=== PATIENT | female | born 1940 | race Caucasian/White ===

== ENCOUNTER → 2023-09-01 14:30 | Outpatient (REF) | payer MEDICARE, OTHER, SELFPAY | LOC: RAD 14:30 | PROVIDERS: ATTENDING PHYSICIAN Physician Assistant | DX: R91.1 Solitary pulmonary nodule (principal) | CPT/HCPCS: 71250 ==

== ENCOUNTER → 2023-09-02 09:43 | Outpatient (REF) | payer MEDICARE, OTHER, SELFPAY ==
[2023-09-02 10:31] LABS: % Basophils 0.8 % (0-2); % Immature Granulocytes 0.4 % (0-0.5); % Lymphocytes 25.2 % (20.5-51.1); % Monocytes 6.3 % (1.7-9.3); % Neutrophils 63.3 % (42.2-75.2); Absolute Eosinophils 0.2 10^3/uL (0-0.7); Absolute Lymphocytes 1.3 10^3/uL (1.2-3.4); Absolute Monocytes 0.3 10^3/uL (0.1-0.6); Absolute Neutrophils 3.1 10^3/uL (1.4-6.5); Hematocrit 35.1 % (37.0-47.0); Hemoglobin 13.1 g/dL (12.0-16.0); Mean Corp Hgb Conc. 37.3 g/dL (33.0-37.0); Mean Corpuscular Hgb 34.7 pg (27.0-31.0); Mean Corpuscular Volume 93.1 fL (81.0-99.0); Mean Platelet Volume 9.3 fL (7.4-10.4); Nucleated Red Blood Cells % 0 %; Platelet Count 234 10^3/uL (130-400); Red Blood Cell Count 3.77 10^6/uL (4.20-5.40); Red Cell Dist. Width 14.6 % (11.5-14.5)
[2023-09-02 11:07] LABS: ALT (SGPT) 15 U/L (0-35); AST (SGOT) 25 U/L (14-36); Albumin 4.2 g/dl (3.5-5.0); Alkaline Phosphatase 79 U/L (38-126); Blood Urea Nitrogen 24 mg/dl (7-17); Calcium 9.5 mg/dl (8.4-10.2); Carbon Dioxide 28 mmol/L (22-30); Chloride 100 mmol/L (98-107); Glucose 91 mg/dl (70-99); HDL Cholesterol 66 mg/dl; LDL Cholesterol, Calculated 62 mg/dl; Potassium 4.2 mmol/L (3.5-5.1); Sodium 135 mmol/L (135-145); Total Bilirubin 1.8 mg/dl (0.2-1.3); Total Cholesterol 156 mg/dl (50-199); Total Protein 7.3 g/dl (6.3-8.2); Triglyceride 141 mg/dl (10-149); Very Low Density Lipoprotein 28 mg/dl (0-30); eGFR > 60.00
== END ==
LOC: RAD 09:43
PROVIDERS: ATTENDING PHYSICIAN Physician Assistant
DX: Z95.2 Presence of prosthetic heart valve (principal); I10 Essential (primary) hypertension; M17.11 Unilateral primary osteoarthritis, right knee
CPT/HCPCS: 36415; 73564; 80053; 80061; 85025

== ENCOUNTER → 2023-10-07 09:57 | Outpatient (REF) | payer MEDICARE, OTHER, SELFPAY | LOC: RAD 09:57 | PROVIDERS: ATTENDING PHYSICIAN Physician Assistant | DX: M81.0 Age-related osteoporosis without current pathological fracture (principal) | CPT/HCPCS: 77080 ==

== ENCOUNTER → 2023-12-29 13:58 | Outpatient (REF) | payer MEDICARE, OTHER, SELFPAY | LOC: RAD 13:58 | PROVIDERS: ATTENDING PHYSICIAN Physician Assistant | DX: M79.89 Other specified soft tissue disorders (principal); R60.0 Localized edema | CPT/HCPCS: 93971 ==

== ENCOUNTER → 2024-02-11 10:55 | Outpatient (REF) | payer MEDICARE, OTHER, SELFPAY | LOC: RCS 10:55 | PROVIDERS: ATTENDING PHYSICIAN Nurse Practitioner; FAMILY PHYSICIAN Physician Assistant | DX: I34.0 Nonrheumatic mitral (valve) insufficiency (principal); I42.1 Obstructive hypertrophic cardiomyopathy | CPT/HCPCS: 93306 ==

== ENCOUNTER → 2024-03-02 09:51 | Outpatient (REF) | payer MEDICARE, OTHER, SELFPAY ==
[2024-03-02 11:17] LABS: ALT (SGPT) 13 U/L (0-35); AST (SGOT) 24 U/L (14-36); Albumin 4.4 g/dl (3.5-5.0); Alkaline Phosphatase 79 U/L (38-126); Blood Urea Nitrogen 15 mg/dl (7-17); Calcium 9.3 mg/dl (8.4-10.2); Carbon Dioxide 27 mmol/L (22-30); Chloride 100 mmol/L (98-107); Glucose 97 mg/dl (70-99); HDL Cholesterol 68 mg/dl; LDL Cholesterol, Calculated 90 mg/dl; Magnesium 2.1 mg/dl (1.6-2.3); Potassium 4.5 mmol/L (3.5-5.1); Sodium 138 mmol/L (135-145); Total Bilirubin 2.1 mg/dl (0.2-1.3); Total Cholesterol 181 mg/dl (50-199); Triglyceride 117 mg/dl (10-149); Very Low Density Lipoprotein 23 mg/dl (0-30); eGFR > 60.00
[2024-03-02 11:20] LABS: % Basophils 0.8 % (0-2); % Eosinophils 2.8 % (0-6); % Immature Granulocytes 0.2 % (0-0.5); % Lymphocytes 25.8 % (20.5-51.1); % Monocytes 6.3 % (1.7-9.3); % Neutrophils 64.1 % (42.2-75.2); Absolute Eosinophils 0.1 10^3/uL (0-0.7); Absolute Lymphocytes 1.3 10^3/uL (1.2-3.4); Absolute Monocytes 0.3 10^3/uL (0.1-0.6); Absolute Neutrophils 3.2 10^3/uL (1.4-6.5); Hematocrit 33.1 % (37.0-47.0); Hemoglobin 12.5 g/dL (12.0-16.0); Mean Corp Hgb Conc. 37.8 g/dL (33.0-37.0); Mean Corpuscular Hgb 35.8 pg (27.0-31.0); Mean Corpuscular Volume 94.8 fL (81.0-99.0); Mean Platelet Volume 9.1 fL (7.4-10.4); Nucleated Red Blood Cells % 0 %; Platelet Count 243 10^3/uL (130-400); Red Blood Cell Count 3.49 10^6/uL (4.20-5.40); Red Cell Dist. Width 14.6 % (11.5-14.5); White Blood Cell Count 4.9 10^3/uL (4.8-10.8)
[2024-03-02 11:29] LABS: Vitamin D, 25-OH*** 30.9 ng/mL (30-80)
== END ==
LOC: REG 09:51
PROVIDERS: ATTENDING PHYSICIAN Physician Assistant
DX: I10 Essential (primary) hypertension (principal); M81.0 Age-related osteoporosis without current pathological fracture; R53.82 Chronic fatigue, unspecified
CPT/HCPCS: 36415; 80053; 80061; 82306; 83735; 84443; 85025

== ENCOUNTER 2024-05-24 08:23 | Inpatient (IN) | payer MEDICARE, OTHER, SELFPAY ==
[2024-05-21 20:48] VITALS: BP 172/89
--- NOTE | 2024-05-21 21:27 | ED.SKININJ ---
HPI-Injury
General
Chief Complaint: Skin Problem
Source: patient
Exam Limitations: none
Time Seen by Provider: 05/21/24 21:26
Nursing documentation reviewed up to this point in time: agreed with
History of Present Illness-Injury
Initial Injury comments:
84-year-old female with history of A-fib on aspirin only, cardiomyopathy, HTN, GI bleed, irritable bowel, anemia, anxiety/depression, atrial valve replacement, presents with swelling, redness, wound RLE.
Fell up concrete steps of [place] 05/02, contusion left paz, deep abrasion mid right paz.
Past 3 days RLE has become more red, swollen so went to UC today and started on Keflex 500 mg TID, she's had one dose.
She and daughter at bedside thought the area looked pretty bad and came here for evaluation
Pt denies pain, states 'discomfort.' Denies f/c.
Past History
Past History
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
ED Past Surgical History: Cardiac (atrial valve replaced x 2, last 2022), Cholecystectomy and Tonsilectomy
Social History
Tobacco: Non-smoker
Alcohol: None
Drug: None
Personal: (Noncontributory)
Living: with family
Family History
Family History: Other (Stroke, [place]); Negative Sudden
Review of Systems
Review of Systems
Allergies reviewed?: Yes
All Other Systems: ROS reviewed and negative except as documented in HPI and ROS
Constitutional: Denies fever or chills
Respiratory: Denies trouble breathing
Cardiac: Denies chest pain
ABD/GI: Denies abdominal pain or nausea
: Denies dysuria or difficulty voiding
Musculoskeletal: Reports other (swelling, redness right lower leg)
Skin: Reports other (wound right paz)
Neurological: Reports no symptoms
Phy Exam
Physical Exam
Physical Exam:
GENERAL: No acute distress. A&Ox3.
CONSTITUTIONAL: Afebrile.
EYES: clear, conjunctivae normal
ENMT: moist mucus membranes, Pharynx nl
RESPIRATORY: Regular respirations, nonlabored, lungs clear.
CARDIOVASCULAR: Regular rate and rhythm, no murmurs, no rubs.
GI: Soft, nontender, normal BS
MUSCULOSKELETAL: Moves with ease. Well perfused.
SKIN: Warm, dry, pink. RLE significantly erythematous, swollen. Quarter sized deep open wound mid paz. Dark red granulation tissue, no purulence
PSYCH: Normal mood and affect. Well kept, interactive and appropriate
NEUROLOGIC: Awake, alert and oriented. No focal neurological deficits
Course
Orders/Labs/Results
Orders:
Orders
05/21/24 22:02
Complete Blood Count/With Diff Urgent
Comprehensive Metabolic Panel Urgent
05/21/24 22:15
Wound Culture [Wound/Abscess/Other Culture] Urgent
MARCELLUS Source: Leg
Specimen Description: Right
Date Specimen was Collected: 05/21/24
Time Specimen was Collected: 22:05
05/21/24 22:19
CeFAZolin 1 GRAM [Ancef] 1 gram in 5 ml IV NOW
05/21/24 23:01
Admit/Transfer Patient As Directed
Co-Sign Provider:
Level of Care: Observation services
Assign to:: Medical/Surgical
Physician / Group: Paddy
Diagnosis: RLE Cellulitis
PRN Pain Medication Management As Directed
May give lesser potent ordered pain med per pt: Yes
preference::
Protocol:: Medication orders for pain may be administered in a
manner that supports deferring to patient preference
when the pt is:
- Requesting an ordered lesser potent pain medication.
Least to most potent pain medications are defined
as: acetaminophen < NSAID < tramadol < opioids
(morphine, oxycodone, hydromorphone).
- Requesting a lesser dose of the same medication IF
ORDERED.
- Requesting a less intrusive route of administration
if both routes are prescribed by the provider (PO <
IV).
05/21/24 23:02
Code Status As Directed
Resuscitation Status: Full Code
Abnormal Lab Results
05/21/24
22:02
RBC 3.19 L 10^6/uL
(4.20-5.40)
Hgb 11.4 L g/dL
(12.0-16.0)
Hct 30.6 L %
(37.0-47.0)
MCH 35.7 H pg
(27.0-31.0)
MCHC 37.3 H g/dL
(33.0-37.0)
RDW 15.5 H %
(11.5-14.5)
Abs Immat Gran (auto) 0.1 H 10^3/uL
(0-0.05)
Absolute Neuts (auto) 6.8 H 10^3/uL
(1.4-6.5)
Absolute Monos (auto) 0.7 H 10^3/uL
(0.1-0.6)
Immature Gran % 0.8 H %
(0-0.5)
Lymphocytes % 14.7 L %
(20.5-51.1)
Sodium 132 L mmol/L
(135-145)
Chloride 96 L mmol/L
(98-107)
Glucose 109 H mg/dl
(70-99)
Total Bilirubin 1.8 H mg/dl
(0.2-1.3)
05/21/24 22:02
05/21/24 22:02
Vital Signs
Initial and Last Documented VS:
Initial Vital Signs
Temp Pulse Resp BP Pulse Ox
98.3 F 87 20 172/89 95
05/21/24 20:48 05/21/24 20:48 05/21/24 20:48 05/21/24 20:48 05/21/24 20:48
Last Documented Vital Signs
Temp Pulse Resp BP Pulse Ox
98.3 F 78 18 142/65 99
05/21/24 20:48 05/21/24 22:21 05/21/24 22:21 05/21/24 22:21 05/21/24 22:21
MDM/Problems Addressed
MDM/Problems Addressed:
84-year-old female with history of A-fib on aspirin only, cardiomyopathy, HTN, GI bleed, irritable bowel, anemia, anxiety/depression, atrial valve replacement, presents with swelling, redness, wound RLE.
Fell up concrete steps of [place] 05/02, contusion left paz, deep abrasion mid right paz.
Past 3 days RLE has become more red, swollen so went to UC today and started on Keflex 500 mg TID, she's had one dose.
She and daughter at bedside thought the area looked pretty bad and came here for evaluation
Pt denies pain, states 'discomfort.' Denies f/c.
Afebrile, NAD
10:30 p.m.
CBC unremarkable.
CMP: No clinically significant abnormality
Wound culture pending
Hospitalist notified of admission.
*Critical Care Note
Total Time (30-74mins, 75-104mins- exclusive of procedures): Not Applicable
ED Attending Note
-
Portions of this chart may have been created with voice recognition software.� Occasional wrong word or��sound alike� substitutions may have occurred due to the inherent limitations of voice recognition software.
Discharge Plan
Departure
Patient Disposition: Admit
Date of Disposition: 05/21/24
Time of Disposition: 21:50
Admit to: Med/Surg
Presentation/result/management discussed w/ accepting MD/DO: Hospitalist
Condition: Fair
Discharge Problem:
Cellulitis of right lower leg, Open wound of right lower leg
Prescriptions:
No Action
quetiapine [Seroquel] 300 MG tablet
300 mg PO HS
aspirin 81 MG tablet,delayed release (DR/EC)
81 mg PO DAILY
alprazolam 0.25 MG tablet
0.125 mg PO HSPRN PRN (Reason: sleep/anxiety)
Patient Comments:
05/21/24: last filled 05/04/24 for 30 tablets over 30 days
latanoprost 0.005 % drops
1 drp RIGHT EYE HS
calcium carbonate-vitamin D3 [Calcium 500 + D] 500 mg-10 mcg (400 unit) Tablet
1 tab PO DAILY
metoprolol tartrate 50 mg tablet
50 mg PO BID 30 Days Qty: 60 0RF
acetaminophen [Tylenol] 325 mg Tablet
325 mg PO BID
amlodipine 5 mg Tablet
5 mg PO DAILY
cephalexin 500 mg Capsule
500 mg PO Q8H
Saline Mist 0.65 % Aerosol,[place]
2 spray INTRANASAL Q4H
Patient Comments:
05/21/24: Uses excessively to prevent nosebleeds, which required hospital visits in the past.
Interventions
Interventions:
*Risk Screen - Suicide Last Done: 05/21/24 20:48
*General Assessment Last Done: 05/21/24 20:48
*Neglect/Abuse Screening Last Done: 05/21/24 20:48
*ED COVID-19 Vaccine History Last Done: 05/21/24 21:56
ED-Skin Assessment Last Done: 05/21/24 21:56
Discharge Date and Time
Print Language: CHILEAN
[2024-05-21 21:56] VITALS: BMI 31.7
[2024-05-21 22:21] VITALS: BP 142/65
[2024-05-21 22:24] LABS: ALT (SGPT) 16 U/L (0-35); AST (SGOT) 23 U/L (14-36); Albumin 4.4 g/dl (3.5-5.0); Alkaline Phosphatase 77 U/L (38-126); Blood Urea Nitrogen 13 mg/dl (7-17); Calcium 9.2 mg/dl (8.4-10.2); Carbon Dioxide 24 mmol/L (22-30); Chloride 96 mmol/L (98-107); Estimated Creatinine Clearance 56 ml/min; Glucose 109 mg/dl (70-99); Sodium 132 mmol/L (135-145); Total Bilirubin 1.8 mg/dl (0.2-1.3); Total Protein 6.9 g/dl (6.3-8.2); eGFR > 60.00
[2024-05-21] MEDS: ANCEF 5 IV (22:27)
[2024-05-21 22:29] LABS: Potassium 3.9 mmol/L (3.5-5.1)
[2024-05-21 23:04] LABS: % Basophils 0.4 % (0-2); % Eosinophils 2.8 % (0-6); % Immature Granulocytes 0.8 % (0-0.5); % Lymphocytes 14.7 % (20.5-51.1); % Monocytes 7.3 % (1.7-9.3); Absolute Eosinophils 0.3 10^3/uL (0-0.7); Absolute Immature Granulocytes 0.1 10^3/uL (0-0.05); Absolute Lymphocytes 1.4 10^3/uL (1.2-3.4); Absolute Monocytes 0.7 10^3/uL (0.1-0.6); Absolute Neutrophils 6.8 10^3/uL (1.4-6.5); Hematocrit 30.6 % (37.0-47.0); Mean Corp Hgb Conc. 37.3 g/dL (33.0-37.0); Mean Corpuscular Hgb 35.7 pg (27.0-31.0); Mean Corpuscular Volume 95.9 fL (81.0-99.0); Mean Platelet Volume 9.3 fL (7.4-10.4); Nucleated Red Blood Cells % 0 %; Platelet Count 324 10^3/uL (130-400); Red Blood Cell Count 3.19 10^6/uL (4.20-5.40); Red Cell Dist. Width 15.5 % (11.5-14.5); White Blood Cell Count 9.2 10^3/uL (4.8-10.8)
[2024-05-21 23:06] LABS: Hemoglobin 11.4 g/dL (12.0-16.0)
--- NOTE | 2024-05-21 23:11 | HPS.HSE ---
Family Physician
-
Family Physician: Shanthi Maravilla
Chief Complaint
-
RLE swelling and redness
History of Present Illness
Patient is an 84y F with PMH significant for mitral valve disease, A-Fib and hypertension who presents to ED complaining of RLE swelling and redness. Patient states that she initially fell while walking into [employer] on 05/02/24. She landed
striking both shins on the concrete steps. Patient was seen at an Urgent Care following that incident and instructed on local care. She had an area of swelling / raised 'blood blister' over the R anterior paz. Patient states that she was doing
fairly well; however, over the past several days she has noted increased swelling and redness of the right lower leg. She has continued discomfort and a small open wound remaining in this area.
She denies any associated symptoms including fevers / chills, N/V/D, complaints, etc.
Patient was again seen an Urgent Care today and was prescribed Keflex for apparent cellulitis. Patient took a single dose of this medication and presented to the ED for further evaluation.
Medical History
Past Medical History
Past Medical History: Reports Other
Additional Past Medical History:
Mitral Valve Disease
Hypertrophic Cardiomyopathy
Hypertension
Atrial Fibrillation
Breast Cancer
Anxiety / Depression
Past Surgical History: Reports Other
Additional Past Surgical History:
Mitral Valve Replacement (2016)
Mitral Valve Redo (2022)
Lumpectomy
Cholecystectomy
T&A
Social History
Tobacco: Non-smoker
Alcohol: None
Drug: None
Family History
Family History: Not pertinent
Allergies / Home Medications
Allergies reflects when Allergies were last updated in [facility].
Home Medications with original date entered in [facility]
Allergy/Medication List:
Allergies
Allergy/AdvReac Type Severity Reaction Status Date / Time
influenza A (H5N1) virus Allergy Rash Verified 11/15/24 22:19
vaccine mo
Home Medications
quetiapine 300 mg tablet (Seroquel) 300 mg PO HS Mental Health/Anxiety 01/21/16
alprazolam 0.25 mg tablet 0.125 mg PO HSPRN PRN sleep/anxiety 06/03/17
aspirin 81 mg tablet,delayed release 81 mg PO DAILY Blood clot prevention/tx 06/03/17
latanoprost 0.005 % eye drops 1 drp RIGHT EYE HS Eye condition 08/03/22
calcium 500 mg (as carbonate)-vitamin D3 10 mcg (400 unit) tablet (Calcium 500 + D) 1 tab PO DAILY Supplement 08/11/22
metoprolol tartrate 50 mg tablet 50 mg PO BID 30 days #60 tabs 08/14/22
acetaminophen 325 mg tablet (Tylenol) 325 mg PO BID 05/21/24
amlodipine 5 mg tablet 5 mg PO DAILY 05/21/24
cephalexin 500 mg capsule 500 mg PO Q8H 05/21/24
sodium chloride 0.65 % nasal spray aerosol (Saline Mist) 2 spray intranasal Q4H 05/21/24
Review of Systems
-
History Source: Patient
A 12 point ROS was completed and negative except as noted: Yes
Constitutional: Denies Fever or Chills
Respiratory: Denies Cough or Trouble Breathing
Cardiac: Denies Chest Pain or Palpitations
Abdomen/GI: Denies Abdominal Pain, Nausea, Vomiting or Diarrhea
: Denies Dysuria, Frequency or Flank Pain
Musculoskeletal: Reports Edema; Denies Joint Pain
Skin: Reports Other (Redness, Wound)
Neurological: Denies Dizzy or Headache
Physical Exam
Vital Signs
Vital Signs
Temp Pulse Resp BP Pulse Ox
98.3 F 78 18 142/65 99
05/21/24 20:48 05/21/24 22:21 05/21/24 22:21 05/21/24 22:21 05/21/24 22:21
Physical Exam
General: Other (84y F in no acute distress.)
HEENT: Moist mucous membranes and PERRLA
Respiratory: Clear; No Wheezes, Rales or Rhonchi
Cardiac: S1/S2 and Regular Rhythm
GI: Soft, Non Tender, Non Distended and Normal Bowel Sounds
Musculoskeletal: Other (RLE with wound over central paz - dressing in place without strikethrough. Surrounding area of redness from proximal paz to the foot. Mildly tender. Increased warmth.)
Neuro: AO x 3
Laboratory Results
-
05/21/24 22:02
05/21/24 22:02
Laboratory Results
Total Bilirubin 1.8 mg/dl (0.2-1.3) H 05/21/24 22:02
AST 23 U/L (14-36) 05/21/24 22:02
ALT 16 U/L (0-35) 05/21/24 22:02
Alkaline Phosphatase 77 U/L (38-126) 05/21/24 22:02
Impression/Plan
-
A/P: Patient is an 84y F with PMH significant for A-Fib, HOCM and mitral valve disease who presents to ED complaining of redness and swelling of the RLE.
RLE Cellulitis
RLE Wound
- Observe overnight for further evaluation and treatment.
- RLE cellulitis - likely secondary to recent trauma / wound.
- IV Ancef for now and follow for clinical improvement.
- No systemic complaints, fever, leukocytosis, etc.
- Change back to PO regimen once clinical response is evident.
- Wound Care evaluation for local care.
- Follow for any new / worsening symptoms.
Benign Hypertension
HOCM
Atrial Fibrillation - Unknown Type
- Stable. Continue current outpatient med regimen.
Anxiety / Depression
- Stable. Continue Seroquel.
DVT Prophylaxis: Subcut heparin
Code Status: Full
[2024-05-21 23:41] VITALS: BP 138/60
[2024-05-22] MEDS: OCEAN, SALINE MIST 2 SPRAYS NASAL (00:10)
[2024-05-22] MEDS: XALATAN OPHTHALMIC SOLUTION 1 DROP OPHTH (00:11)
[2024-05-22] MEDS: SEROQUEL 300 MG PO ×2 (00:12→22:02)
[2024-05-22 01:19] VITALS: BP 112/64
[2024-05-22 01:37] VITALS: BP 129/62
[2024-05-22 01:39] VITALS: BMI 28.7
[2024-05-22] MEDS: SALINE MIST 1 DROPS NASAL ×6 (02:25→20:15)
[2024-05-22] MEDS: ANCEF 10 IV ×3 (02:25→17:04)
[2024-05-22 07:00] VITALS: BP 141/69
[2024-05-22 08:00] LABS: Hematocrit 29.7 % (37.0-47.0); Hemoglobin 10.6 g/dL (12.0-16.0); Mean Corp Hgb Conc. 35.7 g/dL (33.0-37.0); Mean Corpuscular Hgb 35.1 pg (27.0-31.0); Mean Corpuscular Volume 98.3 fL (81.0-99.0); Mean Platelet Volume 9.2 fL (7.4-10.4); Platelet Count 247 10^3/uL (130-400); Red Blood Cell Count 3.02 10^6/uL (4.20-5.40); Red Cell Dist. Width 15.1 % (11.5-14.5); White Blood Cell Count 5.6 10^3/uL (4.8-10.8)
[2024-05-22 08:21] LABS: Blood Urea Nitrogen 11 mg/dl (7-17); Carbon Dioxide 25 mmol/L (22-30); Chloride 99 mmol/L (98-107); Estimated Creatinine Clearance 55 ml/min; Glucose 102 mg/dl (70-99); Potassium 3.8 mmol/L (3.5-5.1); Sodium 137 mmol/L (135-145); eGFR > 60.00
[2024-05-22] MEDS: HEPARIN 5000 UNITS SC ×2 (09:13→20:15)
[2024-05-22] MEDS: LOPRESSOR 50 MG PO ×2 (09:14→20:15)
[2024-05-22] MEDS: NORVASC 5 MG PO (09:15)
[2024-05-22] MEDS: ASPIR LOW (ENTERIC COATED) 81 MG PO (09:15)
--- NOTE | 2024-05-22 13:50 | W.PN.HOSP.TC ---
Addendum entered and electronically signed by Wilton Gamez MD 05/24/24 14:10:
CORRECTION-checked with cardiology. Outpatient notes DO NOT reveal any history of atrial fibrillation.
Original Note:
Today's Communication/Plan
-
IV AB
Compression therapy
Assessment / Plan
Assessment / Plan
84-year-old with right lower extremity swelling and redness patient initially fell while walking and discharged 05/02/2024 was seen at urgent care initially was treated. Again seen in urgent care prescribed Keflex but patient presented to the ER.
Echo 01/10/24-EF 70 to 75%. Normal RV size and function. Status post mitral valve redo replacement with #25 Mitris. Mild . Mild AI. Moderate eccentric TR. Pulmonary artery pressure 25 to 30 mmHg.
Cardiac cath 08/26/2022-right dominant circulation with no CAD. 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 Elevated filling pressures. Severe pulmonary hypertension
CVS: S1-S2 normal
Chest: CTA B/L
Abdomen: Soft, NT / Bowel sounds present
Extremities: right LE redness, small dry wound, edema
SALES ADVISORY MANAGER: Non focal exam
# Right lower extremity cellulitis with wound
Ultrasound without any DVT
Traumatic ulcer
IV Ancef to be continued
Follow for response
Jovan bandage
Advised patient to elevate extremity while seated or in bed she is already doing that.
I will give her 1 dose of Lasix to decrease the edema
# Mild hyponatremia resolved
# Benign hypertension-amlodipine, metoprolol
# Atrial fibrillation-type unclear continue metoprolol. Not on anticoagulation as outpatient
# HOCM-continue beta-blockers
# History of mitral valve replacement by at [facility] 2016 and a redo in September 2022-both bovine valves
# Anxiety and depression-continue Seroquel, Xanax
# History of retinal hemorrhage
# History of GI bleed/IBS
# History of breast cancer with lumpectomy in 2019 not requiring chemotherapy
# DVT prophylaxis-subcutaneous heparin
# Full code
Discussed with nursing
Anticipated Discharge: 24 - 48 hours
Subjective/Interval History
-
Date of Service: May 22, 2024
Objective Data
-
Labs:
Laboratory Results
05/22/24
06:30
WBC 5.6
Hgb 10.6 L
Hct 29.7 L
Plt Count 247 D
Sodium 137
Potassium 3.8
Chloride 99
Carbon Dioxide 25
BUN 11
Creatinine 0.7
Glucose 102 H
Calcium 9.0
Vital Signs:
Vital Signs
Temp Pulse Resp BP Pulse Ox
97.9 F 92 16 141/69 97
05/22/24 07:00 05/22/24 07:00 05/22/24 07:00 05/22/24 07:00 05/22/24 07:00
I&O
05/21/24 05/22/24 05/23/24
06:59 06:59 06:59
Intake Total 220 / 220
Balance 220 / 220
[2024-05-22] MEDS: KCL 20 MEQ PO (14:38)
[2024-05-22] MEDS: LASIX 20 MG IV (14:39)
[2024-05-22 15:00] VITALS: BP 130/58
--- NOTE | 2024-05-22 15:28 | CM ---
disease case manager rn reviewed patient's chart and met with patient and patient lives with her daughter in a 2 story home, patient is independent with adl's and ambulation, no dme, patient drives.
PCP: Shanthi Maravilla
[facility]: [facility]
Plan; Home no needs at discharge.
[2024-05-22] MEDS: XALATAN OPHTHALMIC SOLUTION 1 DROP RIGHT EYE (22:02)
[2024-05-22] MEDS: TYLENOL 650 MG PO (22:06)
[2024-05-22 23:18] VITALS: BP 106/45
[2024-05-23] MEDS: SALINE MIST 1 DROPS NASAL ×3 (00:29→16:17)
[2024-05-23] MEDS: ANCEF 10 IV ×3 (00:29→16:18)
[2024-05-23] MEDS: SALINE MIST NASAL ×2 (04:04→16:16)
[2024-05-23 06:24] LABS: Hematocrit 31.4 % (37.0-47.0); Hemoglobin 11.5 g/dL (12.0-16.0); Mean Corp Hgb Conc. 36.6 g/dL (33.0-37.0); Mean Corpuscular Hgb 35.4 pg (27.0-31.0); Mean Corpuscular Volume 96.6 fL (81.0-99.0); Mean Platelet Volume 8.8 fL (7.4-10.4); Platelet Count 240 10^3/uL (130-400); Red Blood Cell Count 3.25 10^6/uL (4.20-5.40); Red Cell Dist. Width 15.1 % (11.5-14.5); White Blood Cell Count 4.7 10^3/uL (4.8-10.8)
[2024-05-23 07:00] LABS: Blood Urea Nitrogen 20 mg/dl (7-17); Carbon Dioxide 24 mmol/L (22-30); Chloride 104 mmol/L (98-107); Estimated Creatinine Clearance 55 ml/min; Glucose 103 mg/dl (70-99); Potassium 4.3 mmol/L (3.5-5.1); Sodium 139 mmol/L (135-145); eGFR > 60.00
[2024-05-23 07:57] VITALS: BP 147/67
[2024-05-23] MEDS: HEPARIN 5000 UNITS SC ×2 (08:33→20:38)
[2024-05-23] MEDS: ASPIR LOW (ENTERIC COATED) 81 MG PO (08:33)
[2024-05-23] MEDS: NORVASC 5 MG PO (08:34)
[2024-05-23] MEDS: LOPRESSOR 50 MG PO ×2 (08:36→20:38)
--- NOTE | 2024-05-23 13:31 | W.PN.HOSP.TC ---
Addendum entered and electronically signed by Wilton Gamez MD 05/24/24 14:10:
CORRECTION-checked with cardiology. Outpatient notes DO NOT reveal any history of atrial fibrillation.
Addendum entered and electronically signed by Wilton Gamez MD 05/23/24 15:06:
spoke to daughter and updated
Original Note:
Today's Communication/Plan
-
Improving
Await Cx
Possible discharge tomorrow
Continue JOVAN BANDAGES
Assessment / Plan
Assessment / Plan
84-year-old with right lower extremity swelling and redness patient initially fell while walking and discharged 05/02/2024 was seen at urgent care initially was treated. Again seen in urgent care prescribed Keflex but patient presented to the ER.
Echo 01/10/24-EF 70 to 75%. Normal RV size and function. Status post mitral valve redo replacement with #25 Mitris. Mild . Mild AI. Moderate eccentric TR. Pulmonary artery pressure 25 to 30 mmHg.
Cardiac cath 08/26/2022-right dominant circulation with no CAD. 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 Elevated filling pressures. Severe pulmonary hypertension
CVS: S1-S2 normal
Chest: CTA B/L
Abdomen: Soft, NT / Bowel sounds present
Extremities: right LE redness, small dry wound with scab, edema which better
# Right lower extremity cellulitis with wound
Leg looks Mutch better today redness and edema has gone down since yesterday.
Wound Cx with Staph Aureus sensitivities pending however she is responding to Ancef therefore continue
Ultrasound without any DVT
Traumatic ulcer
Jovan bandage
Advised patient to elevate extremity while seated or in bed she is already doing that.
# Mild hyponatremia resolved
# Benign hypertension-amlodipine, metoprolol
# Atrial fibrillation-type unclear continue metoprolol. Not on anticoagulation as outpatient
# HOCM-continue beta-blockers
# History of mitral valve replacement by at [facility] 2016 and a redo in September 2022-both bovine valves
# Anxiety and depression-continue Seroquel, Xanax
# History of retinal hemorrhage
# History of GI bleed/IBS
# History of breast cancer with lumpectomy in 2019 not requiring chemotherapy
# DVT prophylaxis-subcutaneous heparin
# Full code
called and left a message for daughter Eunice
Anticipated Discharge: Within 24 hours
Subjective/Interval History
-
Date of Service: May 23, 2024
Objective Data
-
Labs:
Laboratory Results
05/23/24
06:10
WBC 4.7 L
Hgb 11.5 L
Hct 31.4 L
Plt Count 240
Sodium 139
Potassium 4.3
Chloride 104
Carbon Dioxide 24
BUN 20 H
Creatinine 0.7
Glucose 103 H
Calcium 9.0
Vital Signs:
Vital Signs
Temp Pulse Resp BP Pulse Ox
97.8 F 94 18 147/67 97
05/23/24 07:57 05/23/24 07:57 05/23/24 07:57 05/23/24 07:57 05/23/24 07:57
I&O
05/22/24 05/23/24 05/24/24
06:59 06:59 06:59
Intake Total 220 / 220 1600 / 1600
Balance 220 / 220 1600 / 1600
[2024-05-23 15:22] VITALS: BP 124/54
[2024-05-23] MEDS: SALINE MIST 500 DROPS NASAL (20:37)
[2024-05-23] MEDS: XALATAN OPHTHALMIC SOLUTION 1 DROP RIGHT EYE (22:14)
[2024-05-23] MEDS: SEROQUEL 300 MG PO (22:14)
[2024-05-23 22:26] VITALS: BP 137/61
[2024-05-23 23:30] VITALS: BP 137/61
[2024-05-24] MEDS: ANCEF 10 IV ×2 (00:35→08:10)
[2024-05-24] MEDS: SALINE MIST NASAL ×2 (01:01→04:47)
[2024-05-24 07:30] VITALS: BP 152/83
[2024-05-24] MEDS: ASPIR LOW (ENTERIC COATED) 81 MG PO (08:10)
[2024-05-24] MEDS: NORVASC 5 MG PO (08:11)
[2024-05-24] MEDS: HEPARIN 5000 UNITS SC (08:12)
[2024-05-24] MEDS: SALINE MIST 500 DROPS NASAL (08:14)
[2024-05-24] MEDS: LOPRESSOR 50 MG PO (08:16)
--- NOTE | 2024-05-24 11:50 | WOUNDNOTE ---
WON RN note: Patient admitted with cellulitis of R lower leg and open wound.
See H&P for complete history.
PMH: A Fib, HTN,IBS,B/L knee arthritis, abscess of brain, AVR replacement, L breast lumpectomy.
Wound Location and type/assessment: Patient admitted with: R paz trauma wound, scraped leg on concrete step at [employer]. L leg with some fading bruises and R buttock. R leg with much less redness and swelling. + pedal pulses palpable, heels intact.
Patient asking about information regarding how to obtain compression stockings.
Appetite: Good.
Pressure redistribution devices in place: Accumax, patient sitting in chair.
Plan: Local wound care with honey gel, adaptic, gauze and silicone foam. Jovan wrap knee high and leg elevation. Moisturize legs daily. Applied A&D ointment today. Defer to [facility] pharmacy for compression socks.
Will confirm orders with hospitalist and updated nurse walker.
Updated care plan and will follow as needed.
Note to case management of equipment requested for discharge:
Recommend follow up at wound care center upon discharge.
[2024-05-24] MEDS: SALINE MIST 1 DROPS NASAL (13:13)
--- NOTE | 2024-05-24 13:39 | W.PN.HOSP.TC ---
Addendum entered and electronically signed by Wilton Gamez MD 05/24/24 14:11:
CORRECTION-checked with cardiology. Outpatient notes DO NOT reveal any history of atrial fibrillation.
Original Note:
Today's Communication/Plan
-
Change antibiotics to Keflex
Discharge
Assessment / Plan
Assessment / Plan
84-year-old with right lower extremity swelling and redness patient initially fell while walking and discharged 05/02/2024 was seen at urgent care initially was treated. Again seen in urgent care prescribed Keflex but patient presented to the ER.
Echo 01/10/24-EF 70 to 75%. Normal RV size and function. Status post mitral valve redo replacement with #25 Mitris. Mild . Mild AI. Moderate eccentric TR. Pulmonary artery pressure 25 to 30 mmHg.
Cardiac cath 08/26/2022-right dominant circulation with no CAD. 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 Elevated filling pressures. Severe pulmonary hypertension
CVS: S1-S2 normal
Chest: CTA B/L
Abdomen: Soft, NT / Bowel sounds present
Extremities: right LE redness,
# Right lower extremity cellulitis with wound
Leg looks Mutch better today redness and edema has gone down since yesterday.
Wound Cx with MSSA
Ultrasound without any DVT
Traumatic ulcer
Wound care consultation appreciated continue wound care and Jovan bandages. Patient is aware that she needs to
Do compression stockings
Advised patient to elevate extremity while seated or in bed she is already doing that.
She feels a lot better today and expecting to go home.
# Mild hyponatremia resolved
# Benign hypertension-amlodipine, metoprolol
# Atrial fibrillation-type unclear continue metoprolol. Not on anticoagulation as outpatient
# HOCM-continue beta-blockers
# History of mitral valve replacement by at [facility] 2016 and a redo in September 2022-both bovine valves
# Anxiety and depression-continue Seroquel, Xanax
# History of retinal hemorrhage
# History of GI bleed/IBS
# History of breast cancer with lumpectomy in 2020 not requiring chemotherapy
# DVT prophylaxis-subcutaneous heparin
# Full code
Spoke to patient's daughter Eunice yesterday and updated
More than 30 minutes spent in discharge including
Final examination of the patient
Summarizing hospital stay
Instructions for continuing care to all relevant caregivers
Preparation of discharge records, prescriptions, and referral forms
Total time spent (in minutes): 33 min
Anticipated Discharge: Today
Subjective/Interval History
-
Date of Service: May 24, 2024
Objective Data
-
Vital Signs:
Vital Signs
Temp Pulse Resp BP Pulse Ox
97.7 F 115 16 152/83 96
05/24/24 07:30 05/24/24 07:30 05/24/24 07:30 05/24/24 07:30 05/24/24 07:30
I&O
05/23/24 05/24/24 05/25/24
06:59 06:59 06:59
Intake Total 1600 / 1600 540 / 540
Balance 1600 / 1600 540 / 540
--- NOTE | 2024-05-24 14:11 | W.DS.TRANS ---
Addendum entered and electronically signed by Wilton Gamez MD 05/24/24 15:24:
Dictation-[id number]
Original Note:
DC Summary - Financial Sales Consultant
-
Discharge Instructions:
Discharge Diagnosis/Procedures Right lower extremity cellulitis-MSSA
Hypertension
History of mitral valve replacement
Diet 2 Gram Sodium,Restrict fluids to 64 oz
Driving Restrictions As prior to admission
Other Services VN
Instructions:
Stand-Alone Forms:
Changes to Home Medications: Yes
Discharge Medications:
DC Medications w/original date entered in [employer]
quetiapine 300 mg tablet (Seroquel) 300 mg PO HS Mental Health/Anxiety 01/21/16
alprazolam 0.25 mg tablet 0.125 mg PO HSPRN PRN sleep/anxiety 06/03/17
aspirin 81 mg tablet,delayed release 81 mg PO DAILY Blood clot prevention/tx 06/03/17
latanoprost 0.005 % eye drops 1 drp RIGHT EYE HS Eye condition 08/03/22
calcium 500 mg (as carbonate)-vitamin D3 10 mcg (400 unit) tablet (Calcium 500 + D) 1 tab PO DAILY Supplement 08/11/22
acetaminophen 325 mg tablet (Tylenol) 325 mg PO BID Pain 05/21/24
amlodipine 5 mg tablet 5 mg PO DAILY Blood Pressure 05/21/24
cephalexin 500 mg capsule 500 mg PO QID Skin issues #28 caps 05/24/24
metoprolol tartrate 50 mg tablet 50 mg PO BID Blood pressure 30 days #60 tabs 05/24/24
sodium chloride 0.65 % nasal spray aerosol (Saline Mist) 2 spray intranasal Q4H ent #0 mL 05/24/24
Home Medication Changes
new
cephalexin 500 mg capsule 500 mg PO QID Skin issues #28 caps 05/24/24
Pending Results: No
--- NOTE | 2024-05-24 14:44 | CM ---
Pt to d/c today per hospitalist
Pt will need VN for wound care
Pt seen bedside, pt agreeable to [facility] as she had services in the past
[facility] referral completed in [facility], liaison made aware
IMM reviewed, pt given copy. Copy placed in chart
Per pt, her daughter will transport at d/c.
[facility]

Plan: Home w/ [facility]
--- NOTE | 2024-05-24 15:16 | VNURNOTE ---
Home Health Liaison spoke with patient to discuss [facility] nurse/therapy, visits, schedule and homebound status. Patient is agreeable and understands that visits at home will be 2-3 x per week to assess and teach medical management. Patient is aware
that [facility] will contact them for start of care in 1-2 days after discharge from . [facility] referral in [facility].
[2024-05-24 15:20] VITALS: BP 139/86
== END 2024-05-24 15:40 | disposition home health service (06) | DRG 603 ==
LOC: 4 WEST ACU 08:23
PROVIDERS: Registered Nurse; ADMITTING PHYSICIAN Hospitalist; ATTENDING PHYSICIAN Hospitalist; EMERGENCY PHYSICIAN Emergency Medicine; FAMILY PHYSICIAN Physician Assistant
DX: L03.115 Cellulitis of right lower limb (principal); I42.1 Obstructive hypertrophic cardiomyopathy; L97.919 Non-pressure chronic ulcer of unspecified part of right lower leg with unspecified severity; B95.61 Methicillin susceptible Staphylococcus aureus infection as the cause of diseases classified elsewhere; I10 Essential (primary) hypertension; Z95.2 Presence of prosthetic heart valve; Z79.82 Long term (current) use of aspirin; K58.9 Irritable bowel syndrome, unspecified; F41.9 Anxiety disorder, unspecified; F32.A Depression, unspecified; S80.12XA Contusion of left lower leg, initial encounter; W18.30XA Fall on same level, unspecified, initial encounter; Z86.61 Personal history of infections of the central nervous system; Z90.49 Acquired absence of other specified parts of digestive tract; Z82.3 Family history of stroke; Z85.3 Personal history of malignant neoplasm of breast
CPT/HCPCS: 80048; 80053; 85025; 85027; 87070; 87147; 87186; 87205; 96374; 99284

== ENCOUNTER → 2024-06-01 12:12 | Outpatient (REF) | payer MEDICARE, OTHER, SELFPAY | LOC: WOUND 12:12 | PROVIDERS: ATTENDING PHYSICIAN Surgery; FAMILY PHYSICIAN Physician Assistant | DX: L97.212 Non-pressure chronic ulcer of right calf with fat layer exposed (principal); I34.0 Nonrheumatic mitral (valve) insufficiency; Z95.2 Presence of prosthetic heart valve; Z87.09 Personal history of other diseases of the respiratory system | CPT/HCPCS: 29581; 99203 ==

== ENCOUNTER → 2024-06-07 10:26 | Outpatient (REF) | payer MEDICARE, OTHER, SELFPAY | LOC: WOUND 10:26 | PROVIDERS: ATTENDING PHYSICIAN Surgery | DX: L97.212 Non-pressure chronic ulcer of right calf with fat layer exposed (principal); I34.0 Nonrheumatic mitral (valve) insufficiency; Z95.2 Presence of prosthetic heart valve; Z87.09 Personal history of other diseases of the respiratory system | CPT/HCPCS: 29581; 99213 ==

== ENCOUNTER → 2024-06-14 10:21 | Outpatient (REF) | payer MEDICARE, OTHER, SELFPAY | LOC: WOUND 10:21 | PROVIDERS: ATTENDING PHYSICIAN Surgery; FAMILY PHYSICIAN Physician Assistant | DX: L97.212 Non-pressure chronic ulcer of right calf with fat layer exposed (principal); Z95.2 Presence of prosthetic heart valve; Z87.09 Personal history of other diseases of the respiratory system; I34.0 Nonrheumatic mitral (valve) insufficiency | CPT/HCPCS: 29581; 99213 ==

== ENCOUNTER → 2024-06-21 11:07 | Outpatient (REF) | payer MEDICARE, OTHER, SELFPAY | LOC: WOUND 11:07 | PROVIDERS: ATTENDING PHYSICIAN Surgery; FAMILY PHYSICIAN Physician Assistant | DX: L97.212 Non-pressure chronic ulcer of right calf with fat layer exposed (principal); I34.0 Nonrheumatic mitral (valve) insufficiency; Z95.2 Presence of prosthetic heart valve; Z87.09 Personal history of other diseases of the respiratory system | CPT/HCPCS: 99212 ==

== ENCOUNTER → 2024-11-13 08:59 | Outpatient (REF) | payer MEDICARE, OTHER, SELFPAY | LOC: RAD 08:59 | PROVIDERS: ATTENDING PHYSICIAN Physician Assistant | DX: R91.1 Solitary pulmonary nodule (principal) | CPT/HCPCS: 71250 ==

== ENCOUNTER → 2024-11-23 09:49 | Outpatient (REF) | payer MEDICARE, OTHER, SELFPAY ==
[2024-11-23 10:43] LABS: % Basophils 0.6 % (0-2); % Immature Granulocytes 0.2 % (0-0.5); % Lymphocytes 25.5 % (20.5-51.1); % Monocytes 7.8 % (1.7-9.3); % Neutrophils 61.9 % (42.2-75.2); Absolute Eosinophils 0.2 10^3/uL (0-0.7); Absolute Lymphocytes 1.2 10^3/uL (1.2-3.4); Absolute Monocytes 0.4 10^3/uL (0.1-0.6); Absolute Neutrophils 2.9 10^3/uL (1.4-6.5); Hematocrit 31.7 % (37.0-47.0); Hemoglobin 11.9 g/dL (12.0-16.0); Mean Corp Hgb Conc. 37.5 g/dL (33.0-37.0); Mean Corpuscular Hgb 35.3 pg (27.0-31.0); Mean Corpuscular Volume 94.1 fL (81.0-99.0); Mean Platelet Volume 9.2 fL (7.4-10.4); Nucleated Red Blood Cells % 0 %; Platelet Count 245 10^3/uL (130-400); Red Blood Cell Count 3.37 10^6/uL (4.20-5.40); Red Cell Dist. Width 14.5 % (11.5-14.5); White Blood Cell Count 4.8 10^3/uL (4.8-10.8)
[2024-11-23 11:47] LABS: ALT (SGPT) 14 U/L (0-35); AST (SGOT) 22 U/L (14-36); Albumin 4.4 g/dl (3.5-5.0); Alkaline Phosphatase 68 U/L (38-126); Blood Urea Nitrogen 15 mg/dl (7-17); Calcium 9.3 mg/dl (8.4-10.2); Carbon Dioxide 26 mmol/L (22-30); Chloride 105 mmol/L (98-107); Glucose 95 mg/dl (70-99); HDL Cholesterol 67 mg/dl; LDL Cholesterol, Calculated 67 mg/dl; Potassium 4.3 mmol/L (3.5-5.1); Sodium 137 mmol/L (135-145); Total Bilirubin 2.4 mg/dl (0.2-1.3); Total Cholesterol 150 mg/dl (50-199); Total Protein 6.7 g/dl (6.3-8.2); Triglyceride 83 mg/dl (10-149); Very Low Density Lipoprotein 16 mg/dl (0-30); eGFR > 60.00
== END ==
LOC: REG 09:49
PROVIDERS: ATTENDING PHYSICIAN Physician Assistant
DX: I10 Essential (primary) hypertension (principal); R53.82 Chronic fatigue, unspecified
CPT/HCPCS: 36415; 80053; 80061; 85025

== ENCOUNTER → 2024-12-10 09:14 | Outpatient (REF) | payer MEDICARE, OTHER, SELFPAY | LOC: RCS 09:14 | PROVIDERS: ATTENDING PHYSICIAN Internal Medicine Cardiovascular Disease; FAMILY PHYSICIAN Physician Assistant | DX: Z95.2 Presence of prosthetic heart valve (principal); I35.0 Nonrheumatic aortic (valve) stenosis | CPT/HCPCS: 93306 ==

== ENCOUNTER 2024-12-23 10:48 | Inpatient (IN) | payer MEDICARE, OTHER, SELFPAY ==
[2024-12-14 11:40] LABS: ALT (SGPT) 13 U/L (0-35); AST (SGOT) 19 U/L (14-36); Albumin 4.3 g/dl (3.5-5.0); Alkaline Phosphatase 62 U/L (38-126); Blood Urea Nitrogen 12 mg/dl (7-17); Calcium 9.3 mg/dl (8.4-10.2); Carbon Dioxide 28 mmol/L (22-30); Chloride 101 mmol/L (98-107); Glucose 149 mg/dl (70-99); Hematocrit 32.7 % (37.0-47.0); Hemoglobin 12.1 g/dL (12.0-16.0); Mean Corpuscular Hgb 35.2 pg (27.0-31.0); Mean Corpuscular Volume 95.1 fL (81.0-99.0); Mean Platelet Volume 9.4 fL (7.4-10.4); Platelet Count 264 10^3/uL (130-400); Potassium 4.1 mmol/L (3.5-5.1); Red Blood Cell Count 3.44 10^6/uL (4.20-5.40); Red Cell Dist. Width 14.7 % (11.5-14.5); Sodium 134 mmol/L (135-145); Total Bilirubin 1.9 mg/dl (0.2-1.3); Total Protein 6.8 g/dl (6.3-8.2); White Blood Cell Count 5.4 10^3/uL (4.8-10.8); eGFR > 60.00
[2024-12-14 11:43] LABS: Glycohemoglobin (HgbA1c) 4.7 % (4.0-5.6)
[2024-12-14 14:11] VITALS: BMI 30.2
[2024-12-14 14:18] VITALS: BMI 30.2
[2024-12-23] VITALS (9 sets, daily range): BP systolic 115–136; BP diastolic 45–60; BMI 30.2
[2024-12-23] MEDS: TYLENOL 650 MG PO ×2 (11:55→19:41)
[2024-12-23] MEDS: NORMOSOL-R/PLASMALYTE-A 1000 IV ×2 (11:56→17:15)
[2024-12-23] MEDS: CELEBREX 200 MG PO (11:56)
--- NOTE | 2024-12-23 13:42 | W.PN.UPDATE ---
Update Note
Progress Note Update
L knee OA s/p L TKA w/ Dr Abrams 12/23/24
DVT prophylaxis - ASA, b/l venous foot pumps
HTN -+ parameters - monitor BP
Hypertrophic cardiomyopathy - reduce hourly IVF rate to prevent fluid overload
- Continue BB
- Daily weight, monitor I&Os
GERD and Hiatal hernia - add Pepcid HS
IBS with constipation - per pt preference, will start off initially w/ Colace and Senna
- MOM HS to be added if no BM occurs w/n 2-3 days post-op
MSSA RLE cellulitis, 05/2024, treated with Ancef - Ancef erich-op
- Cefadroxil upon d/c
Iron deficiency anemia; pre-operative hemoglobin stable - non-invasive hgb in AM
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
Post-procedural left sided pleural effusion, status post thoracocentesis 06/2017
Mild aortic stenosis
Mild to moderate aortic regurgitation
Mild pulmonary hypertension
Pulmonary nodules
Left-sided breast cancer, 2019, status post left lumpectomy and previous hormonal therapy
History of recurrent UTIs
Glaucoma
Depression
Anxiety
Osteoporosis
Mild hyponatremia
Obesity, BMI 30.2
--- NOTE | 2024-12-23 13:52 | W.DS.TRANS ---
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
-
Discharge Instructions:
Sleep Apnea Risk Low
Discharge Diagnosis/Procedures L knee OA s/p L TKA w/ Dr Abrams 12/23/24
Diet Regular
Additional Diets Adequate hydration, minimize opioids, and wear
TEDs stockings to prevent low blood pressure/
dizziness.
Activity As tolerated,With Walker
Driving Restrictions Not until seen by your Dr
Bathing Restrictions OK to Shower
Other Services PT
Wound Care Leave dressing on until seen by surgeon's office
for follow-up in 2 weeks.
Instructions:
Stand-Alone Forms: Total Hip/Knee Replacement D/C
Changes to Home Medications: Yes
Discharge Medications:
DC Medications w/original date entered in [employer]
quetiapine 300 mg tablet (Seroquel) 300 mg PO HS Mental Health/Anxiety 01/21/16
latanoprost 0.005 % eye drops 1 drp RIGHT EYE HS Eye condition 08/03/22
calcium 500 mg (as carbonate)-vitamin D3 10 mcg (400 unit) tablet (Calcium 500 + D) 1 tab PO DAILY Supplement 08/11/22
metoprolol tartrate 50 mg tablet 50 mg PO BID Blood pressure 30 days #60 tabs 05/24/24
Vitamin C 1 gum PO DAILY 12/13/24
multivitamin 1 tab PO DAILY 12/13/24
mupirocin 2 % topical ointment 1 applic intranasal BID #1 tube 12/14/24
sodium chloride 0.65 % nasal spray aerosol (Saline Mist) 2 spray intranasal Q4H PRN nasal congestion 12/14/24
cefadroxil 500 mg capsule 500 mg PO BID #14 caps 12/22/24
celecoxib 200 mg capsule (Celebrex) 200 mg PO DAILY #14 caps 12/22/24
dexamethasone 4 mg tablet 4 mg PO BID Anti-inflammatory #5 tabs 12/22/24
famotidine 20 mg tablet (Pepcid) 20 mg PO HS #30 tabs 12/22/24
ondansetron HCl 4 mg tablet 4 mg PO Q6H PRN nausea and vomiting #30 tabs 12/22/24
oxycodone 5 mg tablet 5 - 10 mg (1 - 2 x 5 mg) PO Q6H PRN moderate-severe pain #30 tabs 12/22/24
Saccharomyces boulardii 250 mg capsule (Florastor) 250 mg PO BID #14 caps 12/23/24
acetaminophen 325 mg tablet (Tylenol) 650 mg (2 x 325 mg) PO Q4HWA Pain #1 tab 12/23/24
alprazolam 0.25 mg tablet 0.125 mg (1/2 x 0.25 mg) PO HSPRN PRN sleep/anxiety #1 tab 12/23/24
amlodipine 2.5 mg tablet 2.5 mg PO DAILY #1 tab 12/23/24
aspirin 325 mg tablet 325 mg PO DAILY #30 tabs 12/23/24
docusate sodium 100 mg capsule (Colace) 100 mg PO BID #30 caps 12/23/24
magnesium hydroxide 400 mg/5 mL oral suspension (Milk of Magnesia) 30 ml PO HS PRN Constipation #355 mL 12/23/24
sennosides 8.6 mg capsule (senna) 17.2 mg (2 x 8.6 mg) PO BID #30 caps 12/23/24
Home Medication Changes
cefadroxil 500 mg capsule 500 mg PO BID #14 caps 12/22/24
celecoxib 200 mg capsule (Celebrex) 200 mg PO DAILY #14 caps 12/22/24
dexamethasone 4 mg tablet 4 mg PO BID Anti-inflammatory #5 tabs 12/22/24
famotidine 20 mg tablet (Pepcid) 20 mg PO HS #30 tabs 12/22/24
ondansetron HCl 4 mg tablet 4 mg PO Q6H PRN nausea and vomiting #30 tabs 12/22/24
oxycodone 5 mg tablet 5 - 10 mg (1 - 2 x 5 mg) PO Q6H PRN moderate-severe pain #30 tabs 12/22/24
Saccharomyces boulardii 250 mg capsule (Florastor) 250 mg PO BID #14 caps 12/23/24
acetaminophen 325 mg tablet (Tylenol) 650 mg (2 x 325 mg) PO Q4HWA Pain #1 tab 12/23/24
aspirin 325 mg tablet 325 mg PO DAILY #30 tabs 12/23/24
docusate sodium 100 mg capsule (Colace) 100 mg PO BID #30 caps 12/23/24
magnesium hydroxide 400 mg/5 mL oral suspension (Milk of Magnesia) 30 ml PO HS PRN Constipation #355 mL 12/23/24
sennosides 8.6 mg capsule (senna) 17.2 mg (2 x 8.6 mg) PO BID #30 caps 12/23/24
Pending Results: No
--- NOTE | 2024-12-23 15:48 | OR.RPT ---
Operative Report
Operative Report
Orthopaedic Surgery Operative Note
DATE OF OPERATION: 12/23/2024
PREOPERATIVE DIAGNOSES: Osteoarthritis, left knee.
POSTOPERATIVE DIAGNOSES: Osteoarthritis, left knee.
OPERATION PERFORMED:
1) Left total knee arthroplasty (CPT 73824)
2) Intraosseous administration of analgesic (CPT 66505)
SURGEON: Rakesh Abrams MD
ASSISTANTS: Jt MIKE who helped with patient and limb positioning and retraction
ANESTHESIA: Spinal by anesthesia plus intraoperative infusion of morphine into the tibial metaphysis by Dr. Abrams
COMPLICATIONS: None.
ESTIMATED BLOOD LOSS: 20mL
DRAINS: None
TOURNIQUET TIME: 48 minutes.
IMPLANTS:
- Víctor Persona CR Femur, size 8
- Víctor Persona tibia base plate, size D
- Víctor Persona medial constrained articular surface, 10 mm
- DJO [place] bone cement
INDICATIONS: The patient presented to my office with debilitating left knee pain due to osteoarthritis. We reviewed the natural history of this problem, as well as the risks, benefits, and alternatives of various treatment options. The patient
exhausted all nonoperative treatment options and wished to proceed with knee replacement surgery. The patient understood the risks which included, but were not limited to, bleeding, infection, failure to relieve pain, more pain than preop, damage to
blood vessels and nerves, need for reoperation, mechanical failure of the implants, wound healing problems, stiffness, instability, blood clot, pulmonary embolism, myocardial infarction, pneumonia, arrhythmia, CVA, and . The patient accepted
these risks and wished to proceed. All questions were answered, and informed consent was obtained.
PROCEDURE IN DETAIL: The patient was identified in the preoperative holding area. The left knee was identified as the operative site. The patient was taken in the operating room and placed in a supine position on the operating table. Spinal/General
anesthesia was performed. IV antibiotics and tranexamic acid were administered. An SCD was placed on the right lower extremity. A well-padded tourniquet was placed on the proximal thigh. All bony prominences were well padded. The left lower
extremity was prepped and draped in the usual sterile fashion.
We performed a surgical time-out. An interarticular block was performed with local anesthetic with epinephrine. The limb was exsanguinated with an Esmarch bandage, then the tourniquet was inflated to 250 mmHg. I performed interosseous administration
of morphine-saline solution via a Jamshidi style intraosseous needle into the proximal medial tibial metaphysis as described by Kodak Whitaker MD. This was performed to aid in pain control. A midline skin incision was made followed by a medial
parapatellar arthrotomy. A subperiosteal peel was performed on the medial tibia. I excised part of the infrapatellar fat pad to improve our visualization as well as tissue over anterior femur. The patella was everted and the knee was flexed. I
excised the remnants of the anterior and posterior cruciate ligaments as well as tibial and femoral osteophytes with rongeurs.
The knee was flexed, and the extramedullary tibial cutting guide was aligned. Winkler was aligned at neutral, rotation was centered on the tibial tubercle, and coronal alignment was aligned with the mechanical axis of the tibia and center of the ankle
joint. The cut height was 10mm off the lateral tibia joint surface. The guide was secured into place. The MCL and LCL were protected. The tibia surface was cut. The cut surface was inspected after removal to ensure appropriate height and slope based
on the preoperative plan. The cut was checked with a drop max. It was centered nicely at the ankle.
A drill was used to open the femoral canal. The intramedullary distal femoral cutting guide was inserted into the femur. This was set at 5 degrees +0. This was secured into place with three pins. The cut level was checked with an renetta wing. The
distal femur was cut through the cutting guide. The IM guide was reinserted to double check that the level of resection was flush and in appropriate alignment.
[place]'s line and the transepicondylar axis were marked on the femur. The femoral sizing guide was applied to the anterior femur. Pins were inserted, and the 4-in-1 cutting guide was applied and secured into place. The rotation was compared to
[place]'s line, the transepicondylar axis, and the neutral tibia cut and was found to be appropriate. The width was checked and found to be appropriate and lateralized on the femur. The anterior, posterior, and chamfur cuts were made. A lamina
instructor warper was used to open the flexion gap, and posterior osteophytes were removed with a curved osteotome. The remnant medial and lateral meniscus were also removed. I prophylactically cauterized the lateral geniculate arteries. A 10mm spacer block
was applied to the flexion gap and was noted to be balanced medially and laterally. The knee was extended, and the block showed symmetric to extension and flexion gaps.
The tibia was exposed and sized. Rotation was set in line with the tibial tubercle and congruent with the femur. The trial was secured into place with two pins. The trial femur was impacted into place, and a trial articular surface was placed. The
knee was taken through range of motion and noted to be stable throughout the arc of motion without gaping or excess tension. The patella tracked centrally throughout the arc of motion without need for further releases. No full thickness cartilage
defects.
The trials were removed. The tibia keel was prepared with the punch and the drill. The bone surfaces were irrigated with sterile saline and dried. The cement was mixed in a vacuum mixer. Cement gun was used to apply cement to the tibial surface and
the undersurface of the tibial implant. Cement was pressurized into the tibial canal and tibia surface. The tibial component was impacted into place. Excess cement was removed. Cement was applied to the femoral surface and the femoral component. The
femoral component was impacted into place, and excess cement removed. A trial articular surface was inserted, and the knee was extended while the cement polymerized. The tourniquet was let down, and meticulous hemostasis was achieved. Dilute
betadine was poured into the wound and allowed to soak for 3 minutes. The knee was irrigated with copious normal saline.
Once the cement was polymerized, the trial articular surface was removed. Any excess cement was removed. The knee was trialed, and the final articular surface was selected and inserted into the tibial locking mechanism. The knee was reduced. A fresh
drape was applied to the surgical field.
The arthrotomy was closed with 0-PDS. Once closed, an interarticular block was performed with local anesthetic with epi. The deep dermal layer was closed with 2-0 PDS, and the subcuticular skin was closed with 3-0 monocryl. A Dermabond Prineo
dressing was applied to the skin in full flexion. Once this was completely dry, a sterile waterproof dressing was applied.
The anesthesia team performed an adductor canal block in the OR. The patient awoke from anesthesia without any difficulties. The sponge and instrument counts were correct x2 at the end of the case.
Jose Luis Abrams MD
[2024-12-23] MEDS: ZOFRAN 4 MG IV (16:02)
[2024-12-23] MEDS: TYLENOL PO (17:24)
[2024-12-23] MEDS: COMPAZINE 5 MG PO (18:11)
--- NOTE | 2024-12-23 19:27 | PTCARENOTE ---
Unable to get a temperature upon admission from PACU. Applied multiple warm blankets and increased temperature in the room. Temp axillary is now 96.3. Night RN aware who will contact covering LUG BREAKER AND WIRE PULLER.
[2024-12-23] MEDS: ASPIRIN 325 MG PO (19:40)
[2024-12-23] MEDS: DECADRON 4 MG PO (19:40)
[2024-12-23] MEDS: BACTROBAN 2% OINTMENT 1 APPLIC NASAL (19:40)
[2024-12-23] MEDS: LOPRESSOR 50 MG PO (19:41)
[2024-12-23] MEDS: COLACE PO (20:36)
[2024-12-23] MEDS: SENOKOT PO (20:36)
[2024-12-23] MEDS: SEROQUEL 300 MG PO (22:51)
[2024-12-23] MEDS: PEPCID 20 MG PO (22:53)
[2024-12-23] MEDS: ANCEF 5 IV (22:53)
[2024-12-23] MEDS: XALATAN OPHTHALMIC SOLUTION 1 DROP RIGHT EYE (22:53)
--- NOTE | 2024-12-23 23:32 | W.PN.UPDATE ---
Addendum entered and electronically signed by VIVIEN Yeh 12/24/24 05:45:
Hypothermia resolved 97.3 oral temp.
Original Note:
Update Note
Progress Note Update
Patient noted this evening with a 95.9 rectal temp. Warm blankets applied with minimal effect. Warming blanket applied will trend rectal temp and adjust settings to reach at least 36 C or 96.8 F. No shivering noted.
[2024-12-24] VITALS (8 sets, daily range): BP systolic 92–120; BP diastolic 40–73; PULSE 106–111; O2SAT 97; BMI 26.6
[2024-12-24 00:20] LABS: Glucose - Point of Care 227 mg/dl (70-99)
--- NOTE | 2024-12-24 00:20 | PTCARENOTE ---
Made aware during shift change report that patient was having low temps, 94-96F orally. Warm blankets applied but unable to achieve normothermia. [place] TRACTOR TRAILER DRIVER made aware and warming blanket ordered. Blanketrol machine received from [facility] had a defective
temperature monitoring connection, unable to set to automatic mode, [place] TRACTOR TRAILER DRIVER made aware and ordered to set blanket temp to 97F and check temp qhr. Oral temp measuring 97.3 at 0010 and warming blanket d/c. Will continue to monitor.
[2024-12-24] MEDS: TYLENOL 650 MG PO ×4 (00:31→13:11)
[2024-12-24] MEDS: ANCEF 5 IV (05:22)
[2024-12-24] MEDS: LOPRESSOR PO (08:00)
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
[2024-12-24] MEDS: BACTROBAN 2% OINTMENT 1 APPLIC NASAL (09:25)
[2024-12-24] MEDS: COLACE 100 MG PO (09:26)
[2024-12-24] MEDS: CELEBREX 200 MG PO (09:26)
[2024-12-24] MEDS: ASPIRIN 325 MG PO (09:26)
[2024-12-24] MEDS: DECADRON 4 MG PO (09:26)
[2024-12-24] MEDS: SENOKOT 17.2 MG PO (09:27)
[2024-12-24] MEDS: ProAmatine 5 MG PO ×2 (10:08→13:11)
[2024-12-24] MEDS: NSS 250 IV (10:30)
[2024-12-24] MEDS: NSS 500 IV (11:15)
--- NOTE | 2024-12-24 14:12 | W.PN.ORTHO ---
Today's Communication / Plan
-
d/c
Assessment
.
Distal Motor Intact: Yes
Dressing:
Clean, dry and intact.
Assessment:
Hypotension-IVF bolus-Midodrine x 2 doses--orthostatics now stable
Tachycardia HR 130 with [id number] without signfiicant changes-PVCs -tx with BB
-HR elevated due to deconditioning and pain.
Hypertrophic cardiomyopathy
- Continue BB
- Daily weight, monitor I&Os-stable
GERD and Hiatal hernia - add Pepcid HS
IBS with constipation - per pt preference, will start off initially w/ Colace and Senna
- MOM HS to be added if no BM occurs w/n 2-3 days post-op
MSSA RLE cellulitis, 05/2024, treated with Ancef - Ancef erich-op
- Cefadroxil upon d/c
Iron deficiency anemia; pre-operative hemoglobin stable - non-invasive hgb stable
Plan
.
Surgery / Date: L TKA w/ Dr Abrams 12/23/24
DVT Prophylaxis: Aspirin
Activity:
Out of bed.
PT/OT
Discharge Plan: Home w/ VN
Subjective
.
.:
Patient resting comfortably.
Vital Signs and Labs
.
Vital Signs and Labs:
Lab Results
12/14/24 10:54
12/14/24 10:54
Temp Pulse Resp BP Pulse Ox
97.7 F 106 16 113/70 99
12/24/24 11:00 12/24/24 13:11 12/24/24 11:00 12/24/24 13:11 12/24/24 11:00
Non-invasive Hgb result: 11.4
Physical Exam
-
HEENT: No pallor, cyanosis, or jaundice. Throat clear.
NECK: Supple. No JVD.
RESPIRATORY: Lungs clear to auscultation.
CVS: S1, S2 normal. some ectopy.� +Murmur.
ABDOMEN: Soft, non-tender. No distension. BS+/normal.
EXTREMITIES: strength equal, no calf pain with palpation
OPERATIONS CONSULTANT: AOx3. No focal deficits. shaker flatwork grossly intact
== END 2024-12-24 18:05 | disposition home or self-care (01) | DRG 470 ==
LOC: 2 SOUTH 10:48
PROVIDERS: ADMITTING PHYSICIAN Orthopaedic Surgery; FAMILY PHYSICIAN Physician Assistant; REFERRING PHYSICIAN Internal Medicine Cardiovascular Disease
PROC: 0SRD0J9 Replacement of Left Knee Joint with Synthetic Substitute, Cemented, Open Approach (ICD-10-PCS; 2024-12-23)
DX: M17.12 Unilateral primary osteoarthritis, left knee (principal); I42.2 Other hypertrophic cardiomyopathy; E87.1 Hypo-osmolality and hyponatremia; I10 Essential (primary) hypertension; I08.0 Rheumatic disorders of both mitral and aortic valves; I27.20 Pulmonary hypertension, unspecified; R91.8 Other nonspecific abnormal finding of lung field; K21.9 Gastro-esophageal reflux disease without esophagitis; K44.9 Diaphragmatic hernia without obstruction or gangrene; K58.1 Irritable bowel syndrome with constipation; D50.9 Iron deficiency anemia, unspecified; H40.9 Unspecified glaucoma; F32.A Depression, unspecified; E66.9 Obesity, unspecified; F41.9 Anxiety disorder, unspecified; M81.0 Age-related osteoporosis without current pathological fracture; I95.9 Hypotension, unspecified; R68.0 Hypothermia, not associated with low environmental temperature; Z68.30 Body mass index [BMI] 30.0-30.9, adult; Z85.3 Personal history of malignant neoplasm of breast; Z86.19 Personal history of other infectious and parasitic diseases; Z87.440 Personal history of urinary (tract) infections; Z88.7 Allergy status to serum and vaccine; Z98.42 Cataract extraction status, left eye; Z98.41 Cataract extraction status, right eye; Z90.49 Acquired absence of other specified parts of digestive tract; Z95.2 Presence of prosthetic heart valve
CPT/HCPCS: 36415; 73560; 80053; 82962; 83036; 85027; 87070; 93005; 97110; 97116; 97162; 97166; 97530; 97535; C1713; C1776

== ENCOUNTER 2025-01-03 17:58 | Outpatient (RCR) | payer MEDICARE, OTHER, SELFPAY | END 2025-01-03 23:59 | disposition home or self-care (01) | LOC: RPT 17:58 | PROVIDERS: ATTENDING PHYSICIAN Orthopaedic Surgery; FAMILY PHYSICIAN Physician Assistant | DX: Z47.1 Aftercare following joint replacement surgery (principal); Z96.652 Presence of left artificial knee joint; M17.12 Unilateral primary osteoarthritis, left knee | CPT/HCPCS: 97110; 97162; 97535 ==

== ENCOUNTER 2025-02-03 06:50 | Outpatient (RCR) | payer MEDICARE, OTHER, SELFPAY | END 2025-02-03 23:59 | disposition home or self-care (01) | LOC: RPT 06:50 | PROVIDERS: ATTENDING PHYSICIAN Orthopaedic Surgery; FAMILY PHYSICIAN Physician Assistant | DX: Z47.1 Aftercare following joint replacement surgery (principal); Z96.652 Presence of left artificial knee joint; M17.12 Unilateral primary osteoarthritis, left knee | CPT/HCPCS: 97010; 97110; 97116; 97530 ==

== ENCOUNTER 2025-03-03 11:02 | Outpatient (RCR) | payer MEDICARE, OTHER, SELFPAY | END 2025-03-03 23:59 | disposition home or self-care (01) | LOC: RPT 11:02 | PROVIDERS: ATTENDING PHYSICIAN Orthopaedic Surgery; FAMILY PHYSICIAN Physician Assistant | DX: Z47.1 Aftercare following joint replacement surgery (principal); M17.12 Unilateral primary osteoarthritis, left knee; R26.89 Other abnormalities of gait and mobility; Z73.6 Limitation of activities due to disability; M62.81 Muscle weakness (generalized); Z96.652 Presence of left artificial knee joint | CPT/HCPCS: 97110; 97530 ==

== ENCOUNTER 2025-04-27 11:15 | Emergency (ER) | payer SELFPAY ==
[2025-04-27 11:17] VITALS: BP 147/71
[2025-04-27 12:04] VITALS: BMI 28.3
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
== END 2025-04-27 13:45 | disposition home or self-care (01) ==
LOC: EMR 11:15
PROVIDERS: EMERGENCY PHYSICIAN Student in an Organized Health Care Education/Training Program; FAMILY PHYSICIAN Physician Assistant
DX: Z04.1 Encounter for examination and observation following transport accident (principal); V49.49XA Driver injured in collision with other motor vehicles in traffic accident, initial encounter; I10 Essential (primary) hypertension; I42.8 Other cardiomyopathies; I48.91 Unspecified atrial fibrillation; Z90.49 Acquired absence of other specified parts of digestive tract
CPT/HCPCS: 99282

== ENCOUNTER 2025-06-12 15:21 | Emergency (ER) | payer MEDICARE, OTHER, SELFPAY ==
[2025-06-12 15:24] VITALS: BP 125/75
--- NOTE | 2025-06-12 15:50 | ED.MUSCINJ ---
HPI-Injury
General
Chief Complaint: Fall
Time Seen by Provider: 06/12/25 15:42
Nursing documentation reviewed up to this point in time: agreed with
History of Present Illness-Injury
Is this injury a work related problem?: No
Initial Injury comments:
85-year-old female presents to the ER for further evaluation of head injury that occurred at the conclusion of this morning. 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 She fell onto her buttocks and then
struck her head on the ground. No loss of consciousness. She denies change in vision. No vomiting. She does take baby aspirin daily but no other blood thinners. She has been able to ambulate independently and in fact was able to drive herself
home from [facility]. She went to urgent care for evaluation and was referred to the ER. She denies neck pain. No paresthesias to arms or legs. She states she has been feeling otherwise well.
Past History
Past History
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
ED Past Surgical History: Cardiac (atrial valve replaced x 2, last 2022), Cholecystectomy and Tonsilectomy
Social History
Tobacco: Non-smoker
Alcohol: None
Drug: None
Personal: (Noncontributory)
Living: with family
Employment: Employed
Family History
Family History: Other (Stroke, [place]); Negative Sudden
Review of Systems
Review of Systems
Allergies reviewed?: Yes
Phy Exam
Physical Exam
Physical Exam:
Patient is awake, alert, appears in no acute distress, head is normocephalic with a large hematoma present on the right posterior parietal scalp, no midline pain on palpation of cervical spine, moving neck easily without apparent discomfort, PERRL,
EOMI mucous membranes moist, conjunctiva pink, no increased work of breathing, moving all extremities symmetrically without focal deficit, no dysdiadochokinesia, no ataxia, no pronator drift, extremities without edema, GCS is 15
Injury Course
Orders/Labs/Results
Orders:
Orders
06/12/25 15:[address] [CT Head W/o Iv Contrast] Urgent
Comment:
Reason For Exam: fall with head strike
06/12/25 15:42
CT Cervical Spine W/o Iv Contr Urgent
Comment:
Reason For Exam: trauma
MDM/Problems Addressed
Differential Diagnosis Includes:
Differential diagnosis to consider but not limited to intracranial hemorrhage, skull fracture, occult cervical spine injury along with other etiologies considered
Chronic conditions affecting care:
Advanced age, A-fib, cardiomyopathy, chronic antiplatelet usage, history of GI bleeding
*Radiology
Radiology exam reviewed: preliminary read by ED provider (I independently viewed and interpreted CT of the head showing no gross hemorrhage, no midline shift) and radiology read reviewed (No acute traumatic findings on CT head or cervical spine.
Evidence for prior CVA.)
*Pulse Oximetry
SaO2: 98
Oxygen Mode of Delivery: Room air
Patient hypoxic: no
*Critical Care Note
Total Time (30-74mins, 75-104mins- exclusive of procedures): Not Applicable
Update Note
Update Note:
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 Await results for dispo. Patient declining any need for analgesia.
Once CT results available, I reviewed this information with patient and daughter present at bedside. I discussed with them findings for possible prior CVA-patient has a normal neuroexam, this appears to be an old finding. They then tell me that at
some point in the past 20 years she had a dental abscess that extended into her brain, unclear if this could possibly be related. I advised patient and daughter to follow-up with primary care physician for reevaluation. She is already on daily
baby aspirin. She feels comfortable with plan for discharge and has no questions at the current time.
ED Attending Note
-
Portions of this chart may have been created with voice recognition software.� Occasional wrong word or��sound alike� substitutions may have occurred due to the inherent limitations of voice recognition software.
Discharge Plan
Departure
Patient Disposition: Home (Routine Discharge)
Date of Disposition: 06/12/25
Time of Disposition: 17:02
Patient with high blood pressure during this ER visit?: No
Discharge Problem:
Closed head injury
Instructions: Head Injury in Adults (DC)
Prescriptions:
No Action
quetiapine [Seroquel] 300 MG tablet
300 mg PO HS
latanoprost 0.005 % drops
1 drp RIGHT EYE HS
calcium carbonate-vitamin D3 [Calcium 500 + D] 500 mg-10 mcg (400 unit) Tablet
1 tab PO DAILY
metoprolol tartrate 50 mg tablet
50 mg PO BID 30 Days Qty: 60 0RF
multivitamin Tablet
1 tab PO DAILY
Vitamin C
1 gum PO DAILY
mupirocin 2 % ointment
1 applic intranasal BID Qty: 1 0RF
Patient Comments:
started treatment friday12/20/24 evening and completed BID, last took at home 12/23/24 in am
Saline Mist 0.65 % aerosol,spray
2 spray INTRANASAL Q4H PRN (Reason: nasal congestion)
Patient Comments:
05/21/24: Uses excessively to prevent nosebleeds, which required hospital visits in the past.
oxycodone 5 mg tablet
5 - 10 mg PO Q6H PRN (Reason: moderate-severe pain) Qty: 30 0RF
Rx Instructions:
1 tab for moderate pain, 2 if severe.
Dx total joint.
celecoxib [Celebrex] 200 mg capsule
200 mg PO DAILY Qty: 14 0RF
Rx Instructions:
Take with food.
DO NOT take within 2 hours of Aspirin post-surgery.
dexamethasone 4 mg tablet
4 mg PO BID Qty: 5 0RF
Rx Instructions:
Restart night of discharge and continue twice a day until finished.
Take with food.
ondansetron HCl 4 mg tablet
4 mg PO Q6H PRN (Reason: nausea and vomiting) Qty: 30 0RF
famotidine [Pepcid] 20 mg tablet
20 mg PO HS Qty: 30 0RF
Rx Instructions:
Take nightly while on post-surgical pain meds to reduce GI upset.
cefadroxil 500 mg capsule
500 mg PO BID Qty: 14 0RF
Rx Instructions:
Start night of discharge and continue twice a day until finished.
Take with a probiotic.
docusate sodium [Colace] 100 mg capsule
100 mg PO BID Qty: 30 0RF
senna 8.6 mg capsule
17.2 mg PO BID Qty: 30 0RF
aspirin 325 mg tablet
325 mg PO DAILY Qty: 30 0RF
Rx Instructions:
Take daily x4 weeks for blood clot prevention; then resume Aspirin 81 mg daily.
Saccharomyces boulardii [Florastor] 250 mg capsule
250 mg PO BID Qty: 14 0RF
Rx Instructions:
Over the counter. Take while on antibiotic.
If unavailable, choose a different probiotic.
acetaminophen [Tylenol] 325 mg Tablet
650 mg PO Q4HWA Qty: 1 0RF
Rx Instructions:
DO NOT exceed >4000 mg daily.
amlodipine 2.5 mg Tablet
2.5 mg PO DAILY Qty: 1 0RF
Rx Instructions:
HOLD IF systolic blood pressure <130 while on post-surgical pain meds.
alprazolam 0.25 MG tablet
0.125 mg PO HSPRN PRN (Reason: sleep/anxiety) Qty: 1 0RF
Patient Comments:
11/15/24: last filled 05/04/24 for 30 tablets over 30 days
Rx Instructions:
Caution with Oxycodone - can cause drowsiness.
Use sparingly while on post-surgical narcotics.
magnesium hydroxide [Milk of Magnesia] 400 mg/5 mL suspension
30 ml PO HS PRN (Reason: Constipation) Qty: 355 0RF
Rx Instructions:
Add to bowel regimen of Colace and Senna if no bowel movement occurs within 2-3 days post-op.
Referrals:
Shanthi Maravilla PA-C [Family Provider, General]
Activity Restrictions/Additional Instructions:
Continue your current medications. Please follow-up with your family doctor 1 week for reevaluation and further care. Return to the ER for any concerns
Interventions
Interventions:
*Risk Screen - Suicide Last Done: 06/12/25 15:24
*General Assessment Last Done: 06/12/25 15:24
*Neglect/Abuse Screening Last Done: 06/12/25 15:24
*ED COVID-19 Vaccine History Last Done: 06/12/25 16:33
*ED Influenza Vaccine History Last Done: 06/12/25 16:33
[facility] Fall Risk Assessment Tool Last Done: 06/12/25 16:42
ED-Musculoskeletal Assessment Last Done: 06/12/25 16:42
ED- Neurological Assessment Last Done: 06/12/25 16:42
ED-Skin Assessment Last Done: 06/12/25 16:42
Discharge Date and Time
Print Language: TELUGU
[2025-06-12 16:29] VITALS: BMI 26.0
[2025-06-12 17:00] VITALS: BP 127/52
== END 2025-06-12 17:15 | disposition home or self-care (01) ==
LOC: EMR 15:21
PROVIDERS: EMERGENCY PHYSICIAN Emergency Medicine; FAMILY PHYSICIAN Physician Assistant
DX: S09.90XA Unspecified injury of head, initial encounter (principal); W19.XXXA Unspecified fall, initial encounter; I48.91 Unspecified atrial fibrillation; F41.8 Other specified anxiety disorders; I10 Essential (primary) hypertension; I42.8 Other cardiomyopathies; Z79.82 Long term (current) use of aspirin; Z82.3 Family history of stroke; Z86.61 Personal history of infections of the central nervous system; Z90.49 Acquired absence of other specified parts of digestive tract
CPT/HCPCS: 99284; 70450; 72125